=== PATIENT | female | born 1980 | race Caucasian/White ===

== ENCOUNTER 2017-10-25 07:50 | Emergency (ER) | payer OTHER ==
--- NOTE | 2017-10-25 09:22 | RAD ---
THREE VIEWS RIGHT SHOULDER: HISTORY: Right shoulder injury and pain. FINDINGS: AP internally, externally, and scapular Y views right shoulder are obtained. Three views right shoulder demonstrate no evidence of right shoulder fractures, subluxations, or bony lesions. IMPRESSION: Normal 3 views right shoulder. POS: [facility]
[2017-10-25] MEDS ORDERED: Morphine 4 MG/ML VIAL ONE (09:25)
[2017-10-25] MEDS ORDERED: Ibuprofen 800 MG TAB ONE (09:25)
[2017-10-25] MEDS ORDERED: diphenhydrAMINE 25 MG CAP ONE (09:28)
== END 2017-10-25 10:00 | disposition home or self-care (01) ==
LOC: ERS 07:50
DX: M25.511 Pain in right shoulder (principal); F41.9 Anxiety disorder, unspecified; F32.9 Major depressive disorder, single episode, unspecified; F17.210 Nicotine dependence, cigarettes, uncomplicated; Z71.6 Tobacco abuse counseling
CPT/HCPCS: 96372; 99406; J2270

== ENCOUNTER 2017-12-14 14:08 | Outpatient (CLI) | payer OTHER ==
[2017-12-14 15:02] LABS: Hemoglobin 15.6 g/dL (12.0-16.0); Mean Corpuscular HGB CONC 34.2 g/dL (32.0-36.0); Mean Corpuscular Hemoglobin 32.1 pg (27.0-31.0); Platelet Count 310 thou/uL (130-400); Red Blood Cell (RBC) Count 4.84 mill/uL (4.20-5.40); White Blood Cell (WBC) Count 13.3 thou/uL (4.8-10.8)
[2017-12-14 15:12] LABS: PTT 28.2 SEC (22.9-36.1); Prothrombin Time 12.7 SEC (12.0-14.7)
[2017-12-14 15:29] LABS: Anion Gap 14 mmol/L (10-20); BUN (Urea Nitrogen) 13 mg/dL (7.0-18.7); Calc. Creatinine Clearance 0 mL/min (70-130); Calcium 9.6 mg/dL (7.8-10.44); Carbon Dioxide 24 mmol/L (22-29); Chloride 104 mmol/L (98-107); Estimated GFR-MDRD 77; Glucose 83 mg/dL (70-105); Potassium 4.2 mmol/L (3.5-5.1); Sodium 138 mmol/L (136-145)
--- NOTE | 2017-12-14 16:57 | EKG ---
Test Reason : Blood Pressure : / mmHG Vent. Rate : 092 BPM Atrial Rate : 092 BPM P-R Int : 148 ms QRS Dur : 084 ms QT Int : 348 ms P-R-T Axes : 038 080 -15 degrees QTc Int : 430 ms Normal sinus rhythm T wave abnormality, consider inferior ischemia Abnormal ECG When compared with ECG of 21-JUL-2015 21:31, Questionable change in QRS axis T wave inversion more evident in Inferior leads Nonspecific T wave abnormality now evident in Anterolateral leads Confirmed by SAVANA HORTON ([id number]) on 12/14/2017 4:56:51 PM Referred By: JOSE Confirmed By:SAVANA HORTON
== END 2017-12-14 14:09 | disposition home or self-care (01) ==
LOC: LABBT 14:08
PROVIDERS: ATTEND Surgery
DX: Z01.818 Encounter for other preprocedural examination (principal); M50.10 Cervical disc disorder with radiculopathy, unspecified cervical region
CPT/HCPCS: 80048; 85027; 85610; 85730; 93005; 93010

== ENCOUNTER 2017-12-21 08:48 | Day surgery (SDC) | payer OTHER ==
[2017-12-14 14:10] VITALS: BMI 29.2
[2017-12-21] MEDS ORDERED: Midazolam HCl 2 mg/2 ml Vial ONE ×2 (09:45→12:31)
[2017-12-21] MEDS ORDERED: Clindamycin/D5W 900 mg/50 ml Premix Bag ONE (09:45)
[2017-12-21] MEDS ORDERED: Levofloxacin 500 mg/D5W 100 ml Premix Bag ONE (09:45)
[2017-12-21] MEDS ORDERED: Sodium Chloride 0.9% 10 ML ONE (11:25)
[2017-12-21] MEDS ORDERED: Thrombin 5000 UNITS/5 ML VIAL ONE (11:25)
[2017-12-21] MEDS ORDERED: Fentanyl 100 MCG/2 ML VIAL ONE ×3 (12:24→15:48)
[2017-12-21] MEDS ORDERED: PHENYLEPHRINE-NS 100 MCG/ML 10 ML SYRINGE ONE (13:05)
[2017-12-21] MEDS ORDERED: PROPOFOL 200 MG/20 ML VIAL ONE (13:05)
[2017-12-21] MEDS ORDERED: Dexamethasone 20 MG/5 ML VIAL ONE (13:05)
[2017-12-21] MEDS ORDERED: Glycopyrrolate 0.2 MG/ML 5 ML SYRINGE ONE (13:05)
[2017-12-21] MEDS ORDERED: Ondansetron HCl/PF 4 MG/2 ML Vial ONE (13:05)
[2017-12-21] MEDS ORDERED: Metoclopramide HCl 10 MG/2 ML VIAL ONE (13:05)
[2017-12-21] MEDS ORDERED: Lidocaine 1% PF 5 ML VIAL ONE ×2 (13:05)
[2017-12-21] MEDS ORDERED: HYDROmorphone 2 MG/ML VIAL SLOW IVP PRN (13:43)
[2017-12-21] MEDS ORDERED: Promethazine HCl 25 MG/ML VIAL SLOW IVP PRN (13:43)
[2017-12-21] MEDS ORDERED: Ondansetron HCl/PF 4 MG/2 ML Vial IVP PRN (13:43)
[2017-12-21] MEDS ORDERED: Morphine Sulfate 2 MG/ML SYRINGE SLOW IVP PRN (13:43)
[2017-12-21] MEDS ORDERED: Promethazine HCl 25 MG/ML VIAL IM PRN ×2 (13:43→15:15)
[2017-12-21] MEDS ORDERED: Meperidine HCl/PF 25 MG/ML VIAL SLOW IVP PRN (13:43)
[2017-12-21] MEDS ORDERED: Fleet Enema 133 ML BOT PR PRN (15:15)
[2017-12-21] MEDS ORDERED: Mag-Al 1200 mg/1200 mg/30 ML UDCUP PO PRN (15:15)
[2017-12-21] MEDS ORDERED: Bisacodyl 10 MG SUPP PR PRN (15:15)
[2017-12-21] MEDS ORDERED: Milk Of Magnesia 30 ML UDCUP PO PRN (15:15)
[2017-12-21] MEDS ORDERED: traMADol HCl 50 MG TAB PO PRN (15:15)
[2017-12-21] MEDS ORDERED: Acetaminophen 325 MG TAB PO PRN (15:15)
[2017-12-21] MEDS: Clindamycin/D5W 900 MG in Premix Bag 1 BAG IVPB SCH ×2 (18:25→22:34)
[2017-12-21] MEDS: Sodium Chloride 0.9% 1,000 ML IV SCH (18:25)
[2017-12-21] MEDS: HYDROcodone/Acetaminophen 7.5/325 mg Tablet PO PRN ×2 (18:35→22:33)
[2017-12-21] MEDS: tiZANidine HCl 4 MG TAB PO PRN (20:31)
[2017-12-22] MEDS: HYDROcodone/Acetaminophen 7.5/325 mg Tablet PO PRN ×3 (02:17→10:37)
[2017-12-22] MEDS: tiZANidine HCl 4 MG TAB PO PRN ×2 (02:17→08:12)
[2017-12-22] MEDS: Sodium Chloride 0.9% 1,000 ML IV SCH (07:38)
[2017-12-22] MEDS: Clindamycin/D5W 900 MG in Premix Bag 1 BAG IVPB SCH (08:11)
[2017-12-22] MEDS ORDERED: Citalopram 20 MG TAB PO SCH (09:00)
[2017-12-22] MEDS ORDERED: Hydrochlorothiazide 25 MG TAB PO SCH (09:00)
--- NOTE | 2017-12-22 09:41 | PRG ---
DATE OF SERVICE: 12/22/2017 Ms. Lerma is postoperative day 1 from C4-C6 anterior diskectomy and fusion. She states she has bryant d resolution in her arm pain. She has just trace paresthesias in her right thumb consistent with C6 dermatomal, but she is doing very well; however, otherwise, her drain has been removed by my colleagu e, Ms. Carolyn PA-C, and we will plan for dismissal. We went over intra- and postoperative issues.
[2017-12-22 09:47] VITALS: BP 132/89; TEMP 98.1
--- NOTE | 2017-12-22 10:45 | OP ---
DATE OF SURGERY: 12/21/2017 OR: 11 WOUND TYPE: Type 1 wound. SURGEON: Tin Elias M.D. MAKE UP OPERATOR: Jase Leon PA-C. PREPROCEDURE DIAGNOSES: Cervical disk extrusion with right greater than left upper extremity pain an d C5-C6 radiculopathy. POSTPROCEDURE DIAGNOSES: Cervical disk extrusion with right greater than left upper extremity pain a nd C5-C6 radiculopathy. PROCEDURE: 1. Anterior C4-C5, C5-C6 diskectomies for decompression spinal cord and nerve roots with placement o f interbody spacer packed with local bone autograft obtained from same incision, allograft, C4-C5, C5 -C6 for arthrodesis. 2. Anterior cervical plate and screw fixation, C4, C5, C6. 3. Use of operative microscope for microdissection. PROCEDURE: After informed consent was obtained from the patient, the patient brought to OR 11. Prop er patient pause and identification was carried out. She was placed in excellent endotracheal anesth esia and positioned supine. Her cervical spine was kept in neutral position. We identified a right linear roseann in the neck crease that would allow for approach to C4, C5, C6 segments. This region was sterilely cleansed, prepared, and draped. Proper patient pause and identification was carried out. The wound was then opened with a combination of sharp, monopolar and blunt dissection, and we procee ded lateral to the larynx and pharynx and medial to the right carotid sheath. Identified the prevert ebral layer of deep cervical fascia and retractors were placed following dissection to expose the C4, C5, C6 segments. We then brought the microscope in for microdissection and distraction at C4-C5 the n occurred. We satisfied with our diskectomy and interbody spacer of appropriate dimension packed wi th graft was placed at C4-C5 for arthrodesis. We then released the distraction distracted C5-C6 and diskectomy was performed with excellent decompression of the spinal cord and nerve roots. Disk mater ial was removed as well from the right C6 neural foramen as well this is causing the patient's majori ty of symptoms. We then turned our attention to placement of interbody spacer packed to local bone a utograft obtained from same incision and allograft for arthrodesis. Distraction was then released an d the microscope removed. We then turned our attention to placement of anterior cervical plate and s crew fixation. This was done with final tightening. Copious irrigation occurred throughout as did m aximizing hemostasis. The wound was then closed in anatomic layers over a drain. The patient then e merged from anesthesia.
== END 2017-12-22 11:36 | disposition home or self-care (01) ==
LOC: SDC 08:48 → SURG A 16:30 → SDC 12-22 11:36
PROVIDERS: ATTEND Surgery
PROC: 0RB30ZZ Excision of Cervical Vertebral Disc, Open Approach (ICD-10-PCS; principal; 2017-12-21)
PROC: 0RG2070 Fusion of 2 or more Cervical Vertebral Joints with Autologous Tissue Substitute, Anterior Approach, Anterior Column, Open Approach (ICD-10-PCS; principal; 2017-12-21)
DX: M50.122 Cervical disc disorder at C5-C6 level with radiculopathy (principal); Z88.0 Allergy status to penicillin; Z79.891 Long term (current) use of opiate analgesic; Z79.899 Other long term (current) drug therapy
CPT/HCPCS: 76001; 96374; A4216; C1713; C1776; J0131; J1956; J2250; J2270; J3010; J3490